=== PATIENT | female | born 1995 | race Caucasian/White ===

== ENCOUNTER 2018-06-19 15:44 | Emergency (ER) | payer BC ==
[2018-06-19 16:24] VITALS: BP 119/73
--- NOTE | 2018-06-19 16:43 | UC ---
UC General HPI - HPI Summary HPI Summary: ex boyfriend called her and reported being + for hep b. she declines any symptoms. she is not sure if that is what he said. - History of Current Complaint Chief Complaint: UCGeneralIllness Stated Complaint: PERSONAL Time Seen by Provider: 06/19/18 16:29 Hx Obtained From: Patient Hx Last Menstrual Period: 05/29/18 Pain Intensity: 0 - Allergy/Home Medications Allergies/Adverse Reactions: Allergies Allergy/AdvReac Type Severity Reaction Status Date / Time morphine Allergy Severe Anaphylatic Verified 06/19/18 16:16 Shock Home Medications: Home Medications Oral Contraceptive 1 tab DAILY 06/19/18 [History] PMH/Surg Hx/FS Hx/Imm Hx Previously Healthy: Yes - Surgical History Surgical History: Yes Surgery Procedure, Year, and Place: OVARIAN CYST EXCISION - Social History Alcohol Use: Weekly Substance Use Type: Marijuana Smoking Status (MU): Never Smoked Tobacco Review of Systems All Other Systems Reviewed And Are Negative: Yes Constitutional: Positive: Negative Genitourinary: Negative: Dysuria, Vaginal/Penile Discharge Physical Exam Triage Information Reviewed: Yes Appearance: Well-Appearing Vital Signs: Initial Vital Signs Temp 98.6 F 06/19/18 16:17 Pulse 64 06/19/18 16:17 Resp 17 06/19/18 16:17 BP 119/73 06/19/18 16:17 Pulse Ox 98 06/19/18 16:17 Vital Signs Reviewed: Yes Course/Dx - Course Course Of Treatment: Ex partner called pt. and reported being + for Hep B. Not considered StI but will test pt. for all. she has no symptoms. strongly encouraged using condoms. - Differential Dx - Multi-Symptom Differential Diagnoses: Other - Diagnoses Provider Diagnosis: Screening examination for STD (sexually transmitted disease) Discharge - Sign-Out/Discharge Documenting (check all that apply): Patient Departure All imaging exams completed and their final reports reviewed: No Studies - Discharge Plan Condition: Good Disposition: HOME Patient Education Materials: Sexually Transmitted Diseases (ED) Referrals: No Primary Care Phys,NOPCP [Primary Care Provider] - Additional Instructions: Please follow up with your pcp should you develop any symptoms. - Billing Disposition and Condition Condition: GOOD Disposition: Home
[2018-06-20 12:59] LABS: Hepatitis C Antibody Nonreactive (Nonreactive)
[2018-06-23 12:48] LABS: Neisseria gonorrhoeae (GC) RNA Negative (Negative)
== END 2018-06-19 17:12 | disposition home or self-care (01) ==
LOC: UCCORT 15:44
DX: Z11.3 Encounter for screening for infections with a predominantly sexual mode of transmission (principal); Z88.5 Allergy status to narcotic agent
CPT/HCPCS: 36415; 86592; 86803; 87389; 87491; 87591; 99201; G0463; G0475